=== PATIENT | male | born 1995 | race Caucasian/White ===

== ENCOUNTER 2018-09-14 17:05 | Emergency (ER) | payer SELFPAY ==
[~2018-09-14] VITALS: Ht 167.6 cm; Wt 100.0 kg
[2018-09-14 17:10] VITALS: Ht 167.6 cm; Wt 100.0 kg
[2018-09-14] MEDS ORDERED: HYDROCODONE/APAP (5/325) TAB PO ONE (21:30)
[2018-09-14] MEDS ORDERED: IBUP-1542 PO (22:57)
[2018-09-14 23:14] VITALS: BP 123/75; PULSE 70; RESP 18
--- NOTE | 2018-09-14 23:16 | ERD ---
ER Documentation Chief Complaint Chief Complaint [id number], fr home, right side ear and neck pain x2 days, crying HPI Patient is a 23-year-old male brought in by mother via rescue ambulance from home for concerns of right-sided jaw pain times 4 days. Patient states he feels the pain in his right ear. Patient describes the pain to be "10 out of 10 and sharp". Patient states he feels as if "my jaw is going to fall off because of the pain." Patient states he hears clicking in his ears when he moves his jaw. Patient denies any trauma, falls, dental pain or throat pain. Patient states that he is going to hospitals for his symptoms. Patient states he initially went to [facility] 2 days ago. He states he had blood work done and he was told that all his blood work was normal. Patient went to [facility] yesterday and states he was given pain medication and then sent home with a prescription for ibuprofen and Tylenol. Patient denies any chest pain, shortness breath, nausea, vomiting, fevers, chills, rhinorrhea, abdominal pain or LOC. ROS All systems reviewed and are negative except as per history of present illness. Medications Home Meds Active Scripts Ibuprofen* (Motrin*) 600 Mg Tab, 600 MG PO Q6, #30 TAB Prov:JAZMIN LERMA PA-C 09/14/18 Allergies Allergies: Coded Allergies: No Known Allergy (Unverified , 09/14/18) PMhx/Soc Medical and Surgical Hx: pt denies Surgical Hx Hx Alcohol Use: Yes (OCCASSIONAL LAST DRANK X5DAYS AGO) Hx Substance Use: Yes (MARIJUANA Q OTHERDAY LAST 4MONTHS AGO) Hx Tobacco Use: Yes (4 YEARS/3CIG/DAY LAST 4 MONTHS AGO) Smoking Status: Former smoker FmHx Family History: No diabetes Physical Exam Vitals Vital Signs Date Temp Pulse Resp B/P (MAP) Pulse Ox O2 O2 Flow FiO2 Time Delivery Rate 09/14/18 97.9 70 18 123/75 98 Room Air 23:14 (91) 09/14/18 98.9 99 20 153/90 99 17:10 (111) Physical Exam GENERAL: Well-developed, well-nourished male. Appears in no acute distress. Speaking in full sentences. HEAD: Normocephalic, atraumatic. EYES: Pupils are equally reactive bilaterally. EOMs grossly intact. No conjunctival erythema. ENT: Normal TMs. Tender to palpation of R TMJ. Patient reports pain with opening and closing jaw over R TMJ. Moist mucous membranes. No uvula deviation. No kissing tonsils. No trismus. No drooling. NECK: Supple. No meningismus. Normal range of motion of the neck. No cervical midline tendernes.s LUNG: Clear to auscultation bilaterally. No rhonchi, wheezing, rales or coarse breath sounds. HEART: Regular rate and rhythm. No murmurs, rubs or gallops. EXTREMITIES: Equal pulses bilaterally. No peripheral clubbing, cyanosis or edema. No unilateral leg swelling. NEUROLOGIC: Alert and oriented. Moving all four extremities without any difficulty. Normal speech. Steady gait. SKIN: Normal color. Warm and dry. No rashes or lesions. Results 24 hrs Current Medications Medications Dose Sig/Matthew Start Time Status Last (Trade) Ordered Route PRN Stop Time Admin Dose Reason Admin 1 tab ONCE ONCE 09/14/18 DC 09/14/18 Acetaminophen PO 21:30 21:15 / 09/14/18 21:31 Hydrocodone Bitart ([place] (5/325)) Procedures/MDM ED COURSE: The patient was stable throughout ED course. I kept the patient and/or family informed of laboratory and diagnostic imaging results throughout the ED course. DIAGNOSTIC IMAGING: Read by radiologist. DIAGNOSTIC IMAGING REPORT Patient: TAQUERIA GARZON : 1995 Age: 23 Sex: M MR #: [id number] DOS: 09/14/182105 Ordering MD: JAZMIN LERMA PA-C Location: [facility] Room/Bed: PROCEDURE: CT facial bones without contrast CLINICAL INDICATION: Right sided mandibular pain. TECHNIQUE: A CT of the face without contrast was performed utilizing axial sections from the mandible through the orbits. Coronal and sagittal images were also reformatted. DICOM images are available. One or more of the following dose reduction techniques were used: Automated exposure control, adjustment of the mA and/or kV according to patient size, use of iterative reconstruction technique. The exam CTDIvol = 29.42 mGy and DLP = 609.44 mGy-cm. COMPARISON: None available. FINDINGS: Frontal bone: Intact with the sinuses clear bilaterally. No fracture is present. Ethmoid bone: Trace ethmoid sinus disease is present bilaterally greater on the right. Maxilla: Mild left greater than right maxillary sinus mucosal thickening is present without acute sinus disease. The maxillary teeth are unremarkable. Nasal bones: Intact bilaterally. Zygomata: Intact bilaterally. Sphenoid bone: Small mucous retention cyst or polyp in the right sphenoid sinus is noted. The osseous structures are intact. Mandible: Intact, the temporal mandibular joints are unremarkable. The mandibular teeth are unremarkable Temporal bones: The visualized portions are unremarkable. Soft tissues: Unremarkable. RPTAT:HJJR IMPRESSION: 1. There is no evidence of abnormality to explain the patient's provided history of right mandibular pain. 2. Minimal chronic-appearing ethmoid, maxillary and sphenoid sinus disease. Physician Carlos Date Time Electronically viewed and signed by Physician Carlos on 09/14/2018 22:43 JR/ CC: JAZMIN LERMA PA-C [id number] PROCEDURES: None. MEDICATIONS GIVEN: [place] Patient tolerated medication well with no adverse reactions. Patient reported improvement in pain. MEDICAL DECISION MAKING: Patient is a 23-year-old male brought in by mother via rescue ambulance from home for concerns of right-sided jaw pain times 4 days. Patient has already been seen in 2 outside hospitals for similar pain. Vital signs were reviewed. Patient was afebrile. Patient was not hypoxic. On exam, patient did have tenderness to palpation to his right TMJ. The patient did not have trismus, muffled voice, uvula deviation, unilateral tonsillar swelling, or drooling. Case discussed with supervising physician Dr. Solomon who agreed that CT imaging is appropriate at this time. CT imaging was unremarkable. See formal report above. At this time, patient presentation is most consistent with TMJ dysfunction. Patient was advised to follow-up with dentist. Referral information provided. Low suspicion for jaw fracture, epiglottitis, strep pharyngitis, peritonsillar abscess, retropharyngeal abscess, Jose's angina, dental trauma, airway compromise. Patient was nontoxic, non ill appearing prior to discharge. PRESCRIPTIONS: Ibuprofen DISCHARGE: At this time, patient is stable for discharge and outpatient management. I have instructed the patient to see a dentist today or tomorrow. I have instructed the patient to promptly return to the ER at any time for any new or worsening symptoms including increased pain, fever, swelling, neck swelling, neck stiffness, drooling or difficulty breathing. The patient and/or family expressed understanding of and agreement with this plan. All questions were answered. Home care instructions were provided. Disclaimer: Inadvertent spelling and grammatical errors are likely due to EHR/dictation software use and do not reflect on the overall quality of patient care. Also, please note that the electronic time recorded on this note does not necessarily reflect the actual time of the patient encounter. Departure Diagnosis: Primary Impression: Temporomandibular joint pain Laterality: right Qualified Codes: M26.621 - Arthralgia of right temporomandibular joint Additional Impression: Elevated blood pressure reading Condition: Fair Patient Instructions: Tmj Syndrome Referrals: [facility] YOU HAVE RECEIVED A MEDICAL SCREENING EXAM AND THE RESULTS INDICATE THAT YOU DO NOT HAVE A CONDITION THAT REQUIRES URGENT TREATMENT IN THE EMERGENCY DEPARTMENT. FURTHER EVALUATION AND TREATMENT OF YOUR CONDITION CAN WAIT UNTIL YOU ARE SEEN IN YOUR DOCTORS OFFICE WITHIN THE NEXT 1-2 DAYS. IT IS YOUR RESPONSIBILITY TO MAKE AN APPOINTMENT FOR FOLOW-UP CARE. IF YOU HAVE A PRIMARY DOCTOR --you should call your primary doctor and schedule an appointment IF YOU DO NOT HAVE A PRIMARY DOCTOR YOU CAN CALL OUR PHYSICIAN REFERRAL HOTLINE AT IF YOU CAN NOT AFFORD TO SEE A PHYSICIAN YOU CAN CHOSE FROM THE FOLLOWING [facility] [address] [facility]. [facility] [address] [facility]. [facility] [address] [facility] [address] [facility] [address] [facility] [facility]. [address] [facility]. [facility] YOU HAVE RECEIVED A MEDICAL SCREENING EXAM AND THE RESULTS INDICATE THAT YOU DO NOT HAVE A CONDITION THAT REQUIRES URGENT TREATMENT IN THE EMERGENCY DEPARTMENT. FURTHER EVALUATION AND TREATMENT OF YOUR CONDITION CAN WAIT UNTIL YOU ARE SEEN IN YOUR DOCTORS OFFICE WITHIN THE NEXT 1-2 DAYS. IT IS YOUR RESPONSIBILITY TO MAKE AN APPOINTMENT FOR FOLOW-UP CARE. IF YOU HAVE A PRIMARY DOCTOR --you should call your primary doctor and schedule and appointment IF YOU DO NOT HAVE A PRIMARY DOCTOR YOU CAN CALL OUR PHYSICIAN REFERRAL HOTLINE AT . IF YOU CAN NOT AFFORD TO SEE A PHYSICIAN YOU CAN CHOSE FROM THE FOLLOWING [facility] INSTITUTIONS: [facility] [address] [place] [address] [facility] [address] [place] [address] [facility] [address] [place] [address] Additional Instructions: Follow up with dentist. See referral information. Call your primary care doctor TOMORROW for an appointment during the next 1-2 days.See the doctor sooner or return here if your condition worsens before your appointment time. JAZMIN LERMA PA-C Sep 14, 2018 23:16
== END 2018-09-14 23:14 | disposition home or self-care (01) ==
LOC: FTE 17:05
DX: M26.621 Arthralgia of right temporomandibular joint (principal); R03.0 Elevated blood-pressure reading, without diagnosis of hypertension; Z87.891 Personal history of nicotine dependence
CPT/HCPCS: 70486